=== PATIENT | male | born 1960 | race Caucasian/White ===

== ENCOUNTER 2016-06-06 15:10 | Emergency (ER) | payer OTHER ==
[2016-06-06 15:37] VITALS: BP 128/75; PULSE 84; TEMP 97.9; BMI 25.2
[2016-06-06] MEDS ORDERED: DIPHTH,PERTUSS(ACELL),TET 0.5 ML DISP.SYRIN IM ONE (16:04)
--- NOTE | 2016-06-06 16:06 | PDOC ---
History of Present Illness - General Chief Complaint: Laceration Stated Complaint: LEFT 2ND FINGER LACERATION Time Seen by Provider: 06/06/16 15:54 - History of Present Illness Initial Comments: 06/06/16 16:04 55-year-old male with a negative past medical history He does not remember when his last tetanus was Patient was using a new hedge cutter, and sustained a laceration to his left second fingertip He denies any other injury, although states that it bled quite a bit initially, it has stopped bleeding He denies any numbness or tingling in his finger Past History - Past Medical History Allergies/Adverse Reactions: Allergies Allergy/AdvReac Type Severity Reaction Status Date / Time aspirin Allergy Verified 06/06/16 15:15 ibuprofen Allergy Difficulty Verified 06/06/16 15:15 Breathing Penicillins Allergy Verified 06/06/16 15:15 Home Medications: Ambulatory Orders Doxycycline Hyclate [Vibratab -] 100 mg PO BID #14 tablet 06/06/16 Anemia: No Asthma: No Cancer: Yes (Basal Cell Chest) Cardiac Disorders: No CVA: No COPD: No CHF: No Dementia: No Diabetes: No GI Disorders: No Disorders: No HTN: No Hypercholesterolemia: No Liver Disease: No Seizures: No Thyroid Disease: No - Surgical History Abdominal Surgery: No Appendectomy: No Cardiac Surgery: No Cholecystectomy: Yes Lung Surgery: No Neurologic Surgery: No Orthopedic Surgery: Yes (Exc Ganglion Left Wrist) - Psycho/Social/Smoking Cessation Hx Anxiety: No Suicidal Ideation: No Smoking History: Never smoked Have you smoked in the past 12 months: No Information on smoking cessation initiated: No Hx Alcohol Use: Yes (WEEKEND) Drug/Substance Use Hx: No Substance Use Type: Alcohol Hx Substance Use Treatment: No *Physical Exam - Vital Signs Last Vital Signs Temp Pulse Resp BP Pulse Ox 97.9 F 84 20 128/75 98 06/06/16 15:10 06/06/16 15:10 06/06/16 15:10 06/06/16 15:10 06/06/16 15:10 - Physical Exam Comments: 06/06/16 16:05 Physical exam Last Vital Signs Temp Pulse Resp BP Pulse Ox 97.9 F 84 20 128/75 98 06/06/16 15:10 06/06/16 15:10 06/06/16 15:10 06/06/16 15:10 06/06/16 15:10 Patient is alert and ambulatory and answering questions Head is normocephalic and atraumatic Left hand- There is a flap laceration, which appears to be superficial, on the left second fingertip, flexor surface The patient has full flexion and full extension of the finger The nail is intact Sensation is intact in the finger No other injuries or lacerations are seen ED Treatment Course - RADIOLOGY Radiology Studies Ordered: Category Date Time Status FINGER(S) LEFT [RAD] Stat Radiology 06/06/16 16:03 Ordered Medical Decision Making - Medical Decision Making 06/06/16 17:42 wound was soaked thoroughly in Betadine and saline, and then cleansed thoroughly with Betadine The wound is mostly superficial flap X-rays of the finger are negative, no fx, no FB The superficial flap laceration was closed with good approximation with Dermabond A tetanus booster was administered doxy prophylaxis - severe pcn allergy - will not try keflex *DC/Admit/Observation/Transfer Diagnosis at time of Disposition: Finger laceration - Discharge Dispostion Disposition: HOME Condition at time of disposition: Good - Prescriptions Prescriptions: Doxycycline Hyclate [Vibratab -] 100 mg PO BID #14 tablet - Patient Instructions Additional Instructions: Keep the area clean and dry for the next 4 days, then you may start washing as usual The glue will dissolve on its own-do not pick it off Observe for any signs of infection, which should be redness swelling increasing pain or any other concerns you may have A tetanus booster was administered today-Tdap doxycycline - 1 pill 2x/day Followup with your primary care physician in 24-48 hours Return immediately if you worsen in any way Take your medications as directed
[2016-06-06] MEDS ORDERED: DOXYCYCLINE HYCLATE 100 MG CAPSULE PO ONE ×2 (17:47→17:56)
== END 2016-06-06 18:01 | disposition home or self-care (01) ==
LOC: FER 15:10
PROC: 0HQGXZZ Repair Left Hand Skin, External Approach (ICD-10-PCS; principal; 2016-06-06)
PROC: 3E0234Z Introduction of Serum, Toxoid and Vaccine into Muscle, Percutaneous Approach (ICD-10-PCS; 2016-06-06)
DX: S61.211A Laceration without foreign body of left index finger without damage to nail, initial encounter (principal); W29.3XXA Contact with powered garden and outdoor hand tools and machinery, initial encounter; Y93.89 Activity, other specified; Y92.9 Unspecified place or not applicable; Z85.828 Personal history of other malignant neoplasm of skin
CPT/HCPCS: 73140-TC-LT; 90715; 99283-25